=== PATIENT | female | born 1990 | race Caucasian/White ===

== ENCOUNTER → 2024-06-19 | Outpatient (REF) | payer OTHER | LOC: MRI 08:34 | PROVIDERS: ATTEND Family Medicine | DX: R51.9 Headache, unspecified (principal); F41.9 Anxiety disorder, unspecified; F90.9 Attention-deficit hyperactivity disorder, unspecified type; M54.2 Cervicalgia; F32.A Depression, unspecified; F43.12 Post-traumatic stress disorder, chronic | CPT/HCPCS: 70551 ==